=== PATIENT | male | born 1950 | race Native Hawaiian/Other Pacific Islander ===

== ENCOUNTER 2022-01-25 09:56 | Emergency (ER) | payer OTHER ==
[~2022-01-25] VITALS: Ht 170.2 cm; Wt 65.8 kg
[2022-01-25 10:00] VITALS: BP 144/56; TEMP 99.2
[2022-01-25] MEDS ORDERED: AMOX875T8 PO (10:28)
== END 2022-01-25 11:05 | disposition home or self-care (01) ==
LOC: ED 09:56
DX: K04.7 Periapical abscess without sinus (principal); K02.9 Dental caries, unspecified; J44.9 Chronic obstructive pulmonary disease, unspecified; R06.2 Wheezing; F17.210 Nicotine dependence, cigarettes, uncomplicated
CPT/HCPCS: 96372; 99282; J0696